=== PATIENT | female | born 1965 | race Two or more races ===

== ENCOUNTER 2019-04-29 10:46 | Day surgery (SDC) | payer OTHER ==
[~2019-04-29 10:46] MED LIST: CHONDR SU A NA/HYALUR INTRAOC KIT (SURGICARE) ONE; DORZOLAMIDE HCL 2%/TIMOLOL MALEAT 0.5% OPH SOLN 10 ML OD PRN; EPINEPHRINE INJ/PF 1 MG/1 ML AMPULE ONE; KETOROLAC TROMETHAMINE 0.45% 4 DROP/0.4 ML DROPERETTE OD PRN; LIDOCAINE 1%/PHENYLEPHRINE 1.5% 1 ML VIAL ONE
[2019-04-29] MEDS: BESIFLOXACIN HCL 0.6% OPH SUSP 5 ML BOTTLE OD PRN ×3 (12:13→13:03)
[2019-04-29] MEDS: CYCLOPENTOLATE 0.2%/PHENYLEPHRINE 1% OPH SOLN 2 ML OD PRN ×3 (12:13→12:39)
[2019-04-29] MEDS: TETRACAINE HCL 0.5% OPH SOLN 4 ML OD PRN ×3 (12:13→12:40)
[2019-04-29] MEDS: TROPICAMIDE 1% OPH SOLN 15 ML OD PRN ×3 (12:13→12:39)
[2019-04-29] MEDS ORDERED: ONDANSETRON HCL INJ/PF 4 MG/2 ML SDV ONE (12:25)
[2019-04-29] MEDS ORDERED: MIDAZOLAM 2 MG/2 ML INJ ONE (12:25)
[2019-04-29] MEDS ORDERED: TRYPAN BLUE 0.06 % OPH SOLN 0.5 ML DISP.SYRIN ONE (12:32)
--- NOTE | 2019-04-29 13:10 | Operative Report ---
Operative Report-[facility] Operative Report: DATE OF SURGERY: 04/29/2019 PREOPERATIVE DIAGNOSIS: Cataract, right eye POSTOPERATIVE DIAGNOSIS: Cataract, right eye OPERATION: Cataract extraction with insertion of an IOL of the right eye. Intraocular Lens Model: [27.0 sn60wf] Reason for surgery was difficulty seeing road signs SURGEON: Cj Canseco MD ANESTHESIA: Topical PROCEDURE: After obtaining appropriate consent, the patient's right eye was prepped and draped in a sterile fashion as well as the surgeon in the sterile manner and cataract surgery was started. First a paracentesis blade was used to make a side-port incision. Viscoelastic was used to inflate the anterior chamber. Next a 2.4 mm incision was made with a 2.4 mm blade, clear corneal temporarily. A continuous capsulorrhexis was made using a cystotome and Utrata forceps. Following this hydrodissection was carried out to make the vladimir fully loose and mobile and it was rotated. Following this, a divide and conquer technique was used to phacoemulsify the vladimir. The remaining cortex was removed with an irrigation/aspiration. Provisc was instilled into the capsular bag to inflate the bag. The intraocular lens was placed. The remaining viscoelastic material was removed with irrigation/aspiration. Following this, the incision was found to be watertight. Besivance and Cosopt was instilled into the eye and a protective shield was placed over the eye. The patient was reurned to the postoperative recovery in a stable condition.
== END 2019-04-29 13:35 | disposition home or self-care (01) ==
LOC: SC 10:46
PROVIDERS: ATTEND Internal Medicine
DX: H25.89 Other age-related cataract (principal); H04.123 Dry eye syndrome of bilateral lacrimal glands; Z96.1 Presence of intraocular lens; Z88.2 Allergy status to sulfonamides; Z87.891 Personal history of nicotine dependence; Z88.1 Allergy status to other antibiotic agents; Z79.899 Other long term (current) drug therapy
CPT/HCPCS: 66984; 00142; V2632; J2250; J3490 ×2; J0171; J2405; J2370; 142

== ENCOUNTER 2019-09-15 12:07 | Emergency (ER) | payer OTHER ==
--- NOTE | 2019-09-15 12:21 | ER Document Report ---
ED Medical Screen (RME) - General Chief Complaint: Abdominal Pain Stated Complaint: RIGHT ABDOMINAL PAIN Time Seen by Provider: 09/15/19 12:15 Primary Care Provider: ARVIND TRAVIS MD [Primary Care Provider] - Follow up as needed Notes: Patient presents with right lower quadrant pain that started around 5:00 this morning. Patient reports nausea without any vomiting or diarrhea. Patient denies any urinary symptoms. Patient denies any vaginal bleeding or discharge. Patient was seen at her doctor's office who advised her to come here for evaluation for possible appendicitis. I have greeted and performed a rapid initial assessment of this patient. A comprehensive ED assessment and evaluation of the patient, analysis of test results and completion of the medical decision making process will be conducted by additional ED providers. TRAVEL OUTSIDE OF THE [place] IN LAST 30 DAYS: No - Related Data Allergies/Adverse Reactions: sulfamethoxazole [From Bactrim] Allergy (Verified 04/26/19 11:52) trimethoprim [From Bactrim] Allergy (Verified 04/26/19 11:52) Home Medications: desipramine Past Medical History - Social History Chew tobacco use (# tins/day): No Frequency of alcohol use: None Drug Abuse: None - Past Medical History Cardiac Medical History: Denies: Hx Heart Attack, Hx Hypertension Pulmonary Medical History: Denies: Hx Asthma Neurological Medical History: Denies: Hx Cerebrovascular Accident, Hx Seizures GI Medical History: Denies: Hx Hepatitis, Hx Hiatal Hernia, Hx Ulcer Infectious Medical History: Denies: Hx Hepatitis Past Surgical History: Reports: Hx Cholecystectomy, Hx Tubal Ligation. Denies: Hx Mastectomy, Hx Open Heart Surgery, Hx Pacemaker Physical Exam - Vital signs Vitals: Temp Pulse Resp BP Pulse Ox 97.6 F 89 18 138/74 H 99 09/15/19 12:17 09/15/19 12:17 09/15/19 12:17 09/15/19 12:17 09/15/19 12:17 - Abdominal Tenderness: Tender - Right lower quadrant tenderness Course - Vital Signs Vital signs: Temp Pulse Resp BP Pulse Ox 97.6 F 89 18 138/74 H 99 09/15/19 12:17 09/15/19 12:17 09/15/19 12:17 09/15/19 12:17 09/15/19 12:17 Doctor's Discharge - Discharge Referrals: ARVIND TRAVIS MD [Primary Care Provider] - Follow up as needed
[2019-09-15 12:40] LABS: ABSOLUTE LYMPHOCYTES (AUTO) 1.5 10^3/uL (0.5-4.7); ABSOLUTE MONOCYTES (AUTO) 0.3 10^3/uL (0.1-1.4); ABSOLUTE NEUT (AUTO) 3.5 10^3/uL (1.7-8.2); BASOPHILS % (AUTO) 0.8 % (0-2); EOSINOPHILS % (AUTO) 0.7 % (0-6); HEMOGLOBIN 15.5 g/dL (12.0-15.5); LYMPHOCYTES % (AUTO) 27.1 % (13-45); MEAN CORPUSCULAR HEMOGLOBIN 31.5 pg (27.0-33.4); MEAN CORPUSCULAR HGB CONC 35.2 g/dL (32.0-36.0); MEAN CORPUSCULAR VOLUME 90 fl (80-97); MONOCYTES % (AUTO) 6.2 % (3-13); PLATELET COUNT 247 10^3/uL (150-450); RED BLOOD COUNT 4.91 10^6/uL (3.72-5.28); RED CELL DISTRIBUTION WIDTH 12.7 % (11.5-14.0); SEGMENTED NEUTROPHILS % (AUTO) 65.2 % (42-78); TOTAL CELLS COUNTED % (AUTO) 100 %; WHITE BLOOD COUNT 5.4 10^3/uL (4.0-10.5)
[2019-09-15 12:55] LABS: ALBUMIN 4.8 g/dL (3.5-5.0); ALKALINE PHOSPHATASE 83 U/L (38-126); ANION GAP 8 (5-19); ASPARTATE AMINO TRANSFERASE 23 U/L (14-36); BILIRUBIN,TOTAL 0.7 mg/dL (0.2-1.3); BLOOD UREA NITROGEN 17 mg/dL (7-20); CARBON DIOXIDE 28 mmol/L (22-30); CHLORIDE 102 mmol/L (98-107); GLUCOSE 105 mg/dL (75-110); POTASSIUM 4.4 mmol/L (3.6-5.0); TOTAL PROTEIN 8.1 g/dL (6.3-8.2)
[2019-09-15 13:10] LABS: APPEARANCE,URINE CLEAR; BILIRUBIN,URINE NEGATIVE (NEGATIVE); COLOR,URINE COLORLESS; GLUCOSE, URINE NEGATIVE (NEGATIVE); KETONES,URINE NEGATIVE (NEGATIVE); LEUKOCYTE ESTERASE,URINE NEGATIVE (NEGATIVE); NITRITE,URINE NEGATIVE (NEGATIVE); PROTEIN,URINE NEGATIVE (NEGATIVE); URINE SPECIFIC GRAVITY 1.003; UROBILINOGEN,URINE NEGATIVE mg/dL (<2.0)
--- NOTE | 2019-09-15 14:06 | ER Document Report ---
ED General - General Chief Complaint: Abdominal Pain Stated Complaint: RIGHT ABDOMINAL PAIN Time Seen by Provider: 09/15/19 12:15 Primary Care Provider: ARVIND TRAVIS MD [Primary Care Provider] - Follow up as needed TRAVEL OUTSIDE OF THE [place] IN LAST 30 DAYS: No - HPI Notes: Patient is a 54-year-old female who presents to the emergency department for evaluation of right lower quadrant pain. She states that last night she went to bed without issue. She had no nausea. Had a normal bowel movement yesterday. This morning she woke at about 5 to 5:30 AM. She states she had a squeezing right lower quadrant abdominal pain. It is constant in nature. She states is worsened by movement, laying on her side, getting from a sitting to a standing position. She has had some associated nausea. No fevers or chills. Normal urination. She denies any vaginal discharge. She has not had a bowel movement today. She called her primary care doctor, who sent her to the ED to be evaluated for possible appendicitis. - Related Data Allergies/Adverse Reactions: sulfamethoxazole [From Bactrim] Allergy (Verified 04/26/19 11:52) trimethoprim [From Bactrim] Allergy (Verified 04/26/19 11:52) Home Medications: desipramine Past Medical History - General Information source: Patient - Social History Smoking Status: Former Smoker Chew tobacco use (# tins/day): No Frequency of alcohol use: None Drug Abuse: None Family History: Reviewed & Not Pertinent Patient has homicidal ideation: No - Past Medical History Cardiac Medical History: Denies: Hx Heart Attack, Hx Hypertension Pulmonary Medical History: Denies: Hx Asthma Neurological Medical History: Denies: Hx Cerebrovascular Accident, Hx Seizures GI Medical History: Denies: Hx Hepatitis, Hx Hiatal Hernia, Hx Ulcer Psychiatric Medical History: Reports: Hx Depression Infectious Medical History: Denies: Hx Hepatitis Past Surgical History: Reports: Hx Cholecystectomy, Hx Tubal Ligation. Denies: Hx Mastectomy, Hx Open Heart Surgery, Hx Pacemaker Review of Systems - Review of Systems Gastrointestinal: See HPI -: Yes All other systems reviewed and negative Physical Exam - Vital signs Vitals: Temp Pulse Resp BP Pulse Ox 97.6 F 89 18 138/74 H 99 09/15/19 12:17 09/15/19 12:17 09/15/19 12:17 09/15/19 12:17 09/15/19 12:17 - Notes Notes: Vital signs reviewed, please refer to chart. Head is normocephalic, atraumatic. Pupils equal round, reactive to light. Neck is supple without meningismus. Heart is regular rate and rhythm. Lungs are clear to auscultation bilaterally. Abdomen is soft, moderately tender in the right lower quadrant without rebound or guarding, normoactive bowel sounds throughout. Negative heeltap, negative Rovsing's. Extremities without cyanosis, clubbing. Posterior calves are n ontender. Peripheral pulses are equal. Skin is warm and dry. Patient is awake, alert, neurological exam is nonfocal. Course - Re-evaluation Re-evalutation: 09/15/19 14:05 Patient presents the emergency department for evaluation of right lower quadrant pain. Certainly her course would not be typical, but she is tender in the right lower quadrant. Laboratory investigations and CT scan with oral and IV contrast has been ordered. Patient is tolerating the contrast well. She is stable at this time, we will continue to monitor. 09/15/19 16:24 Patient feeling improved. Labs unremarkable. CT unremarkable. Serial abdominal exams nonsurgical. We will discharge the patient home. She is told to stick to clear liquids, advance diet slowly, follow-up with primary care provider tomorrow, and return with worsening. - Vital Signs Vital signs: Temp Pulse Resp BP Pulse Ox 97.6 F 85 18 134/76 H 100 09/15/19 12:17 09/15/19 15:04 09/15/19 15:04 09/15/19 15:04 09/15/19 15:04 - Laboratory Result Diagrams: 09/15/19 12:30 09/15/19 12:30 - Diagnostic Test Radiology reviewed: Reports reviewed Radiology results interpreted by me: 09/15/19 16:24 Abdomen/Pelvis CT 09/15/19 00:00 IMPRESSION: NO SIGNIFICANT OR ACUTE FINDING IN THE ABDOMEN OR PELVIS ON CT SCAN WITH IV CONTRAST. Discharge - Discharge Clinical Impression: Right lower quadrant abdominal pain Condition: Stable Disposition: HOME, SELF-CARE Instructions: Abdominal Pain ([facility]) Additional Instructions: No clear cause is found today for your abdominal pain. Please follow-up with your primary care provider tomorrow. If your pain worsens, you develop fevers, vomiting, or any other new or concerning symptoms, please return immediately to the emergency department for evaluation. Referrals: ARVIND TRAVIS MD [Primary Care Provider] - Follow up as needed
--- NOTE | 2019-09-15 15:48 | RADIOLOGY REPORT (SQ) ---
EXAM DESCRIPTION: CT ABD/PELVIS WITH IV ORAL IMAGES COMPLETED DATE/TIME: 09/15/2019 3:35 pm REASON FOR STUDY: RLQ pain COMPARISON: CT abdomen pelvis 06/29/2013, 03/06/2016 TECHNIQUE: CT scan of the abdomen and pelvis performed using helical scanning technique with dynamic intravenous contrast injection. Patient drank oral contrast. Images reviewed with lung, soft tissue , and bone windows. Reconstructed coronal and sagittal MPR images reviewed. Delayed images for evalua tion of the urinary system also acquired. All images stored on PACS. All CT scanners at this facility use dose modulation, iterative reconstruction, and/or weight based d osing when appropriate to reduce radiation dose to as low as reasonably achievable (ALARA). [facility]: Dose Right [facility]: CareDose [facility]: Dose Right [facility]: Teradose 4D [facility]: Hipui CONTRAST TYPE AND DOSE: contrast/concentration: Isovue 350.00 mg/ml; Total Contrast Delivered: 100.0 ml; Total Saline Delivered: 72.0 ml RENAL FUNCTION: GFR > 60. RADIATION DOSE: CT Rad equipment meets quality standard of care and radiation dose reduction techniq ues were employed. CTDIvol: 5.3 mGy. DLP: 631 mGy-cm.. LIMITATIONS: None. FINDINGS: LOWER CHEST: No significant findings. No nodules or infiltrates. LIVER: Normal size. No masses. No dilated ducts. 14 mm cyst inferior aspect right lobe liver SPLEEN: Normal size. No focal lesions. PANCREAS: No masses. No significant calcifications. No adjacent inflammation or peripancreatic fluid collections. Pancreatic duct not dilated. GALLBLADDER: Surgically absent ADRENAL GLANDS: No significant masses or asymmetry. RIGHT KIDNEY AND URETER: No solid masses. No significant calcifications. No hydronephrosis or hyd roureter. LEFT KIDNEY AND URETER: No solid masses. No significant calcifications. No hydronephrosis or hydr oureter. AORTA AND VESSELS: No aneurysm. No dissection. Renal arteries, SMA, celiac without stenosis. RETROPERITONEUM: No retroperitoneal adenopathy, hemorrhage or masses. BOWEL AND PERITONEAL CAVITY: Patient drank oral contrast. No masses or inflammatory changes. No free fluid or peritoneal masses. APPENDIX: Normal. PELVIS: No mass. No free fluid. Normal bladder. Normal size female pelvic organs. No free pelvic f luid. ABDOMINAL WALL: No masses. No hernias. BONES: No significant or acute findings. OTHER: No other significant finding. IMPRESSION: NO SIGNIFICANT OR ACUTE FINDING IN THE ABDOMEN OR PELVIS ON CT SCAN WITH IV CONTRAST. TECHNICAL DOCUMENTATION: JOB ID: [id number] Quality ID # [id number]: Final reports with documentation of one or more dose reduction techniques (e.g., Au tomated exposure control, adjustment of the mA and/or kV according to patient size, use of iterative reconstruction technique) 2010 [employer]- All Rights Reserved Reading location - IP/workstation name: [email or web address]
[2019-09-15 17:00] VITALS: BP 131/79
== END 2019-09-15 17:00 | disposition home or self-care (01) ==
LOC: ER 12:07
DX: R10.31 Right lower quadrant pain (principal); R10.813 Right lower quadrant abdominal tenderness; R11.0 Nausea; Z88.1 Allergy status to other antibiotic agents; Z79.899 Other long term (current) drug therapy; Z87.891 Personal history of nicotine dependence; Z90.49 Acquired absence of other specified parts of digestive tract; Z98.51 Tubal ligation status
CPT/HCPCS: 36415; 74177; 80053; 81001; 85025; 99284

== ENCOUNTER 2020-05-31 19:31 | Emergency (ER) | payer OTHER ==
--- NOTE | 2020-05-31 21:21 | ER Document Report ---
ED General - General Chief Complaint: Headache Stated Complaint: HEADACHE/VOMITING/CHILLS Time Seen by Provider: 05/31/20 21:19 Primary Care Provider: ARVIND TRAVIS MD [Primary Care Provider] - Follow up as needed TRAVEL OUTSIDE OF THE [place] IN LAST 30 DAYS: No - HPI Notes: 54-year-old female presents with a headache. Patient states that she developed a left-sided headache last night, was gradual on onset. She typically does have headaches to the left side, states that her headaches are typically relieved with Advil, however she has been taking every 6 hours and has not had resolution of her headache. She also reports she has had a few episodes of nausea and vomiting today. She reports chills and a dry mouth. States that her abdomen feels funny after vomiting. She currently denies abdominal pain. 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 She denies visual changes. - Related Data Allergies/Adverse Reactions: sulfamethoxazole [From Bactrim] Allergy (Verified 04/26/19 11:52) trimethoprim [From Bactrim] Allergy (Verified 04/26/19 11:52) Past Medical History - General Information source: Patient - Social History Smoking Status: Former Smoker Chew tobacco use (# tins/day): No Frequency of alcohol use: None Drug Abuse: None Family History: Reviewed & Not Pertinent - Past Medical History Cardiac Medical History: Denies: Hx Heart Attack, Hx Hypertension Pulmonary Medical History: Denies: Hx Asthma Neurological Medical History: Denies: Hx Cerebrovascular Accident, Hx Seizures GI Medical History: Denies: Hx Hepatitis, Hx Hiatal Hernia, Hx Ulcer Psychiatric Medical History: Reports: Hx Depression Infectious Medical History: Denies: Hx Hepatitis Past Surgical History: Reports: Hx Cholecystectomy, Hx Tubal Ligation. Denies: Hx Mastectomy, Hx Open Heart Surgery, Hx Pacemaker Review of Systems - Review of Systems Constitutional: Chills. denies: Fever EENT: denies: Blurred vision, Double vision Cardiovascular: denies: Chest pain Respiratory: denies: Short of breath Gastrointestinal: Nausea, Vomiting. denies: Abdominal pain Genitourinary: No symptoms reported Female Genitourinary: No symptoms reported Musculoskeletal: No symptoms reported Skin: No symptoms reported Hematologic/Lymphatic: No symptoms reported Neurological/Psychological: Headaches Physical Exam - Vital signs Vitals: Temp Pulse Resp BP Pulse Ox 98.8 F 112 H 16 125/65 98 05/31/20 19:38 05/31/20 19:38 05/31/20 19:38 05/31/20 19:38 05/31/20 19:38 - General General appearance: Appears well, Alert In distress: None - HEENT Head: Normocephalic, Atraumatic Extraocular movements intact: Yes Pupils: PERRL Neck: Supple Notes: No left temporal tenderness - Respiratory Breath sounds: Normal - Cardiovascular Rhythm: Regular Heart sounds: Normal auscultation - Abdominal Distension: No distension Tenderness: Nontender - Extremities General upper extremity: Normal ROM General lower extremity: Normal ROM - Neurological Neuro grossly intact: Yes Cognition: Normal Orientation: AAOx4 - Psychological Associated symptoms: Normal affect - Skin Skin Temperature: Warm Course - Re-evaluation Re-evalutation: 54-year-old female presents with headache, gradual onset last night. Typically has this distribution of headache. On exam she is neurologically intact, no focal deficits, no temporal tenderness. She is afebrile and hemodynamically stable. She has no abdominal tenderness. Discussed with patient likely has onset of a viral illness, Covid is a possibility given the current pandemic and possible exposure. Currently no headache red flags. Headache could be tension versus migraine. Will treat with Compazine, Benadryl and fluids. 06/01/20 00:24 Reports feeling better. Elevated temp 100.2 noted. Covid swab ordered, discussed with patient will likely receive results in 2 days. Advised to quarantine at home. Discussed continue supportive care including Zofran for nausea/vomiting. None precautions given, stable at time of discharge. - Vital Signs Vital signs: Temp Pulse Resp BP Pulse Ox 100.3 F 121 H 16 121/58 L 96 06/01/20 01:00 06/01/20 01:00 05/31/20 19:38 06/01/20 01:00 06/01/20 01:00 - Laboratory Results Critical Laboratory Results Reviewed: No Critical Results - Radiology Results Critical Radiology Results Reviewed: No Critical Results Discharge - Discharge Clinical Impression: Viral syndrome, Person under investigation for COVID-19 Condition: Stable Disposition: HOME, SELF-CARE Instructions: COVID-19 Guidance for Persons Under Investigation Additional Instructions: As discussed, you should receive your Covid result in about 2 days. Please quarantine at home until these results are received. You may continue Tylenol and ibuprofen for symptoms. I prescribed Zofran which is for nausea/vomiting. Be sure to drink plenty of fluids, diet as tolerated. He may also begin use of vitamin C, vitamin D and zinc, these products are often [id number] under brand name such as Zicam or Emergen-C. Return to the emergency department for any concerning worsening symptoms. Prescriptions: Ondansetron [Zofran Odt 4 mg Tablet] 1 tab PO Q4H PRN #15 tab.rapdis PRN Reason: For Nausea/Vomiting Referrals: ARVIND TRAVIS MD [Primary Care Provider] - Follow up as needed
[2020-05-31] MEDS ORDERED: DIPHENHYDRAMINE HCL 50 MG/ML VIAL IV ONE (21:29)
[2020-05-31] MEDS ORDERED: RINGERS SOLUTION,LACTATED 1,000 ML IV ONE (21:29)
[2020-05-31] MEDS ORDERED: PROCHLORPERAZINE EDISYLATE INJ 10 MG/2 ML VIAL IV ONE (21:29)
--- OUTSIDE RECORDS SUMMARY | 2020-05-31 21:36 | XMS REPORT ---
:1965 Author Organization [facility] Address [facility] – [place] [address] [place] [id number] Care Team Providers Name Role Phone Unavailable Unavailable Unavailable Allergies, Adverse Reactions, Alerts This patient has no known allergies or adverse reactions. Medications Ordered Filled Start Stop Current Ordering Indication Dosage Frequency Signature Comments Components Medication Medication Date Date Medication? Clinician (SIG) Name Name desipramine No 1 Q1D desipramin 10 mg e 10 mg tablet Take tablet 1 tablet Take 1 every day tablet by oral every day route. by oral route. Besivance No Besivance 0.6 % eye 0.6 % eye drops,suspe drops,susp nsion Uses ension as directed Uses as directed Durezol No Durezol 0.05 % eye 0.05 % eye drops Uses drops Uses as directed as directed Prolensa No Prolensa 0.07 % eye 0.07 % eye drops Uses drops Uses as directed as directed Problems Condition Condition Condition Status Onset Resolution Last Treatin g Comments Name Details Category Date Date Treatment Clinician Date Inflammatio Inflammatio Problem Active 2018-05 n of n of 2-16 rotator Rotator 00:00: cuff tendon Cuff Tendon 00 Impingement Impingement Problem Active 2018-05 syndrome of Syndrome of 2-16 shoulder Shoulder 00:00: region Region 00 Muscle Muscle Problem Active 2018-05 weakness Weakness 1-14 00:00: 00 Stiffness Stiffness Problem Active 2018-05 of left of Left 1-14 shoulder Shoulder 00:00: 00 Adhesive Adhesive Problem Active 2018-05 capsulitis Capsulitis 1-14 of left of Left 00:00: shoulder Shoulder 00 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 Assessments Condition Name Status Diagnosis Date Treating Clinici an Stiffness of left shoulder Active 2019-06-24 15:43:05 Pain of left shoulder joint Active 2019-06-28 16:19:10 Stiffness of left shoulder Active 2019-06-24 15:43:05 Pain of left shoulder joint Active 2019-06-28 16:19:10 Pain of left shoulder joint Active 2019-05-21 12:29:50 Stiffness of left shoulder Active 2019-05-21 12:29:50 Adhesive capsulitis of left shoulder Active 2019-05-21 12:29:50 Muscle weakness Active 2019-05-21 12:29:50 Pain of left shoulder joint Active 2019-05-20 11:46:58 Stiffness of left shoulder Active 2019-05-20 11:46:58 Adhesive capsulitis of left shoulder Active 2019-05-20 11:46:58 Muscle weakness Active 2019-05-20 11:46:58 Pain of left shoulder joint Active 2019-04-27 18:52:50 Stiffness of left shoulder Active 2019-04-27 18:52:50 Adhesive capsulitis of left shoulder Active 2019-04-27 18:52:50 Muscle weakness Active 2019-04-27 18:52:50 Pain of left shoulder joint Active 2019-04-22 15:10:42 Inflammation of rotator cuff tendon Active 2019-04-26 0 8:36:54 Impingement syndrome of shoulder region Active 08:37:40 Pain of left shoulder joint Active 2019-04-22 15:10:42 Inflammation of rotator cuff tendon Active 2019-04-26 0 8:36:54 Impingement syndrome of shoulder region Active 08:37:40 Pain of left shoulder joint Active 2019-04-22 12:10:02 Stiffness of left shoulder Active 2019-04-22 12:10:02 Adhesive capsulitis of left shoulder Active 2019-04-22 12:10:02 Muscle weakness Active 2019-04-22 12:10:02 Pain of left shoulder joint Active 2019-04-22 12:10:02 Stiffness of left shoulder Active 2019-04-22 12:10:02 Adhesive capsulitis of left shoulder Active 2019-04-22 12:10:02 Muscle weakness Active 2019-04-22 12:10:02 Pain of left shoulder joint Active 2019-04-15 14:48:54 Stiffness of left shoulder Active 2019-04-15 14:48:54 Adhesive capsulitis of left shoulder Active 2019-04-15 14:48:54 Muscle weakness Active 2019-04-15 14:48:54 Pain of left shoulder joint Active 2019-04-15 14:48:54 Stiffness of left shoulder Active 2019-04-15 14:48:54 Adhesive capsulitis of left shoulder Active 2019-04-15 14:48:54 Muscle weakness Active 2019-04-15 14:48:54 Pain of left shoulder joint Active 2019-04-07 15:03:59 Stiffness of left shoulder Active 2019-04-07 15:03:59 Adhesive capsulitis of left shoulder Active 2019-04-07 15:03:59 Muscle weakness Active 2019-04-07 15:03:59 Pain of left shoulder joint Active 2019-04-07 15:03:59 Stiffness of left shoulder Active 2019-04-07 15:03:59 Adhesive capsulitis of left shoulder Active 2019-04-07 15:03:59 Muscle weakness Active 2019-04-07 15:03:59 Pain of left shoulder joint Active 2019-04-04 11:46:38 Stiffness of left shoulder Active 2019-04-04 11:46:38 Adhesive capsulitis of left shoulder Active 2019-04-04 11:46:38 Muscle weakness Active 2019-04-04 11:46:38 Pain of left shoulder joint Active 2019-04-04 11:46:38 Stiffness of left shoulder Active 2019-04-04 11:46:38 Adhesive capsulitis of left shoulder Active 2019-04-04 11:46:38 Muscle weakness Active 2019-04-04 11:46:38 Pain of left shoulder joint Active 2019-03-28 15:23:20 Stiffness of left shoulder Active 2019-03-28 15:23:50 Adhesive capsulitis of left shoulder Active 2019-03-28 15:24:19 Muscle weakness Active 2019-03-28 15:25:14 Pain of left shoulder joint Active 2019-03-28 15:23:20 Stiffness of left shoulder Active 2019-03-28 15:23:50 Adhesive capsulitis of left shoulder Active 2019-03-28 15:24:19 Muscle weakness Active 2019-03-28 15:25:14 Pain of left shoulder joint Active 2019-03-18 09:51:46 Adhesive capsulitis of left shoulder Active 2019-03-22 11:13:32 Pain of left shoulder joint Active 2019-03-18 09:51:46 Adhesive capsulitis of left shoulder Active 2019-03-22 11:13:32 Encounters Start End Encounter Admission Attending Care Care Encounter Date/Time Date/Time Type Type Clinicians Facility Department ID 2019-06-24 2019-06-24 Silvino Parham [id number] 00:00:00 00:00:00 [facility] [id number] [facility] PAC: [address], [place] [address] , Ph. 2019-06-24 2019-06-24 Silvino Parham [id number] 00:00:00 00:00:00 [facility] [id number] [facility] PAC: [address], [address], [facility] [place] [address] , Ph. 2019-05-20 2019-05-20 Silvino Parham [id number] 00:00:00 00:00:00 [facility] [id number] [facility] DPT: [address], [place] [address] , Ph. 2019-05-19 2019-05-19 Silvino Parham [id number] 00:00:00 00:00:00 [facility] [id number] [facility] DPT: [address], [place] [address] , Ph. 2019-04-26 2019-04-26 Silvino Parham [id number] 00:00:00 00:00:00 [facility] [id number] [facility] DPT: [address], [place] [address] , Ph. 2019-04-22 2019-04-22 Silvino Parham [place] [id number] 00:00:00 00:00:00 [facility] [id number] [facility] PAC: [address], [address], [place] [address] , Ph. 2019-04-22 2019-04-22 Silvino Parham [id number] 00:00:00 00:00:00 [facility] [id number] [facility] PAC: [address], [address], [place] [address] , Ph. 2019-04-21 2019-04-21 Silvino Parham [id number] 00:00:00 00:00:00 [facility] [id number] [facility] DPT: [address], [place] [address] , Ph. 2019-04-21 2019-04-21 Silvino Parham [id number] 00:00:00 00:00:00 [facility] [id number] [facility] DPT: [address], [place] [address] , Ph. 2019-04-15 2019-04-15 Silvino Parham [id number] 00:00:00 00:00:00 [facility] [id number] [facility] DPT: [address], [place] [address] , Ph. 2019-04-15 2019-04-15 Silvino Parham [id number] 00:00:00 00:00:00 [facility] [id number] [facility] DPT: [address], [place] [address] , Ph. 2019-04-05 2019-04-05 Silvino Parham [id number] 00:00:00 00:00:00 [facility] [id number] [facility] DPT: [address], [place] [address] , Ph. 2019-04-05 2019-04-05 Silvino Parham [id number] 00:00:00 00:00:00 [facility] [id number] [facility] DPT: [address], [place] [address] , Ph. 2019-04-01 2019-04-01 Silvino Parham [id number] 00:00:00 00:00:00 [facility] [id number] [facility] DPT: [address], [place] [address] , Ph. 2019-04-01 2019-04-01 Silvino Parham [id number] 00:00:00 00:00:00 [facility] [id number] [facility] DPT: [address], [place] [address] , Ph. 2019-03-25 2019-03-25 Silvino Parham [id number] 00:00:00 00:00:00 [facility] [id number] [facility] DPT: [address], [place] [address] , Ph. 2019-03-25 2019-03-25 Silvino Parham [id number] 00:00:00 00:00:00 [facility] [id number] [facility] DPT: [address], [place] [address] , Ph. 2019-03-18 2019-03-18 Silvino Parham [id number] 00:00:00 00:00:00 [facility] [id number] [facility] PAC: [address], [address], [place] [address] , Ph. 2019-03-18 2019-03-18 Silvino Parham [id number] 00:00:00 00:00:00 [facility] [id number] [facility] PAC: [address] [facility], [place] [address] , Ph. Social History Smoking Status Start Date Stop Date Former Smoker Vital Signs Vital Name Observation Time Observation Value Comments BP Diastolic 2019-06-24 00:00:00 77 mm[Hg] Height 2019-06-24 00:00:00 62 [in_i] BMI (Body Mass Index) 2019-06-24 00:00:00 23.8 kg/m2 BP Systolic 2019-06-24 00:00:00 109 mm[Hg] Body Weight 2019-06-24 00:00:00 130 [lb_av] BP Diastolic 2019-04-22 00:00:00 80 mm[Hg] Height 2019-04-22 00:00:00 62 [in_i] BMI (Body Mass Index) 2019-04-22 00:00:00 23.8 kg/m2 BP Systolic 2019-04-22 00:00:00 120 mm[Hg] Body Weight 2019-04-22 00:00:00 130 [lb_av] BP Diastolic 2019-03-18 00:00:00 76 mm[Hg] Height 2019-03-18 00:00:00 62 [in_i] BMI (Body Mass Index) 2019-03-18 00:00:00 23.8 kg/m2 BP Systolic 2019-03-18 00:00:00 128 mm[Hg] Body Weight 2019-03-18 00:00:00 130 [lb_av] Hospital Discharge Instructions 1. Stiffness of left shoulder 2. Pain of left shoulder joint Discussion Note Patient educated on differential diagnosis of her shoulder pain She is having significant improvement and benefit from physical therapy I have encouraged her continuing this and daily participation home exercise program She is requesting a PRN follow-up Given return to care criteria If patient returns consider injection at follow-up Patient educational handouts: No information available.1. Pain of left shoulder joint XR, shoulder physical therapy referral 2. Adhesive capsulitisof left shoulder Discussion Note Patient educated on differential diagnosis We will start physical therapy and home exercise program Patient is requesting to hold off on injection Follow-up in 4 to 6 weeks if she continues to have difficulty we will consider injection at that time versus MRI Patient reports that she has been taking ibuprofen I recommended that she continue to take that Also recommendthe use of ice Patient educational handouts: No information available.
[2020-06-01 01:02] VITALS: BP 121/58
== END 2020-06-01 01:02 | disposition home or self-care (01) ==
LOC: ER 19:31
DX: B34.9 Viral infection, unspecified (principal); R51.9 Headache, unspecified; R11.2 Nausea with vomiting, unspecified; R68.83 Chills (without fever); R68.2 Dry mouth, unspecified; Z87.891 Personal history of nicotine dependence; Z88.1 Allergy status to other antibiotic agents; Z20.822 Contact with and (suspected) exposure to COVID-19
CPT/HCPCS: 99284; 96361; 96374; 96375; 36415; 87635; J1200; J0780; J7120; C9803